=== PATIENT | female | born 1960 | race Caucasian/White ===

== ENCOUNTER 2017-07-31 03:20 | Inpatient (IN) | payer SELFPAY ==
[~2017-07-31] VITALS: Ht 160 cm; Wt 67.1 kg
[2017-07-31] MEDS ORDERED: MAGNESIUM/ALUMINUM HYDROXIDE/SIMETHICONE 30ML UDC PO STA (03:32)
[2017-07-31] MEDS ORDERED: SODIUM CHLORIDE 0.9% 1,000 ML IV ONE (03:32)
[2017-07-31] MEDS ORDERED: FAMOTIDINE 20MG/2ML VIAL IV STA (03:32)
[2017-07-31] MEDS ORDERED: ONDANSETRON HCL 4MG/2ML VIAL IV STA (03:32)
[2017-07-31] MEDS ORDERED: MORPHINE SULFATE 2 MG/ML CPJ (NOT FOR IM USE) IV STA (03:36)
[2017-07-31] MEDS ORDERED: MORPHINE SULFATE 4 MG/ML CPJ (NOT FOR IM USE) IV NR (04:00)
[2017-07-31 04:02] LABS: CHLORIDE 102 mEq/L (98-107)
[2017-07-31 04:03] LABS: BASOPHILS % 0.8 % (0.0-2.0); EOSINOPHILS % 1.4 % (0.0-5.0); HEMATOCRIT. 43.3 % (36.0-48.0); HEMOGLOBIN. 14.5 g/dL (12.0-16.0); MEAN CORPUSCULAR VOLUME 80.4 fL (81.0-99.0); MEAN PLATELET VOLUME 8.7 fl (7.4-10.4); MONOCYTES % 4.2 % (2.0-8.0); NEUTROPHILS % 35.6 % (40.0-76.0); PLATELET 325 x1000/uL (130-400); RED BLOOD CELL COUNT 5.38 mill/uL (4.2-5.4); RED CELL DISTRIBUTION WIDTH 13.9 % (11.6-14.6)
[2017-07-31 04:06] LABS: ETHANOL BLOOD 252 mg/dL
[2017-07-31] MEDS ORDERED: SODIUM CHLORIDE 0.9% 1000ML BAG (SEPSIS BOLUS) IV ONE (04:15)
[2017-07-31 04:36] LABS: CLARITY URINE TURBID (CLEAR); COLOR URINE YELLOW (YELLOW); KETONES URINE TRACE (NEGATIVE); LEUKOCYTE ESTERASE URINE 3+ (NEGATIVE); NITRITE URINE NEGATIVE (NEGATIVE); OCCULT BLOOD URINE 1+ (NEGATIVE); PROTEIN URINE 1+ (NEGATIVE); SPECIFIC GRAVITY URINE 1.032 (1.005-1.030)
[2017-07-31] MEDS ORDERED: KETOROLAC 30MG/ML VIAL IV NR (04:46)
[2017-07-31] MEDS ORDERED: CEFTRIAXONE 1 G PREMIX 50 ML IV NR (05:30)
[2017-07-31 05:47] LABS: *AMPHETAMINES SCREEN URINE NEGATIVE (NEGATIVE); *BARBITURATES SCREEN URINE NEGATIVE (NEGATIVE); *BENZODIAZEPINES SCREEN URINE NEGATIVE (NEGATIVE); *COCAINE SCREEN URINE NEGATIVE (NEGATIVE)
[2017-07-31 05:48] LABS: CANNABINOID URINE SCREEN NEGATIVE (NEGATIVE); METHADONE URINE SCREEN NEGATIVE (NEGATIVE); OPIATES URINE SCREEN PRESUMTIVE POSITIVE (NEGATIVE); PHENCYCLIDINE URINE SCREEN NEGATIVE (NEGATIVE)
[2017-07-31] MEDS ORDERED: METRONIDAZOLE 500 MG PREMIX 100 ML IV NR (06:00)
[2017-07-31 09:30] VITALS: BP 112/42
[2017-07-31 10:00] VITALS: BP 115/51
[2017-07-31] MEDS ORDERED: DEXT 5%/0.45% NACL 1000ML 1,000 ML IV SCH (11:30)
[2017-07-31] MEDS ORDERED: ACETAMINOPHEN 650MG SUPP PR PRN (11:30)
[2017-07-31] MEDS ORDERED: LORAZEPAM 2MG/ML CPJ IV PRN (11:30)
[2017-07-31] MEDS ORDERED: MORPHINE SULFATE 2 MG/ML CPJ (NOT FOR IM USE) IV PRN (11:30)
[2017-07-31] MEDS ORDERED: ONDANSETRON HCL 4MG/2ML VIAL IV PRN (11:30)
[2017-07-31 12:00] VITALS: BP 116/52
[2017-07-31] MEDS ORDERED: LEVOFLOXACIN 500MG PREMIX 100 ML IV SCH (12:45)
[2017-07-31 16:00] VITALS: BP 116/50
[2017-07-31 20:00] VITALS: BP 123/57
[2017-08-01] VITALS: BP 132/52
[2017-08-01 04:00] VITALS: BP 120/52
[2017-08-01 07:38] LABS: CHLORIDE 107 mEq/L (98-107)
[2017-08-01 07:45] LABS: BASOPHILS % 0.4 % (0.0-2.0); EOSINOPHILS % 2.2 % (0.0-5.0); HEMOGLOBIN. 12.3 g/dL (12.0-16.0); LYMPHOCYTES % 38.9 % (20.0-50.0); MEAN CORPUSCULAR VOLUME 81.3 fL (81.0-99.0); MONOCYTES % 6.2 % (2.0-8.0); NEUTROPHILS % 52.3 % (40.0-76.0); RED BLOOD CELL COUNT 4.55 mill/uL (4.2-5.4)
[2017-08-01 10:02] LABS: PLATELET 196 x1000/uL (130-400)
[2017-08-01 13:12] VITALS: BP 120/52
== END 2017-08-01 13:27 | disposition home or self-care (01) | DRG 247 ==
LOC: ER 03:20 → 6EST 05:48 → ENRESERV 08:47
PROVIDERS: ADMIT Hospitalist; ATTEND Hospitalist
DX: K56.609 Unspecified intestinal obstruction, unspecified as to partial versus complete obstruction (principal); N39.0 Urinary tract infection, site not specified; F10.129 Alcohol abuse with intoxication, unspecified
CPT/HCPCS: 36415; 74018; 74176; 80053; 80305; 81003; 83605; 83690; 85025; 87086; 93005; 96361; 96365; 96367; 96375; 99291; G0482; J0696; J1885; J1956; J2270; J2405; J3490; J7030